=== PATIENT | male | born 1960 | race Caucasian/White ===

== ENCOUNTER 2017-05-25 20:43 | Emergency (ER) | payer OTHER ==
[~2017-05-25] VITALS: Ht 170.2 cm; Wt 83.9 kg
[2017-05-25 21:39] LABS: HEMATOCRIT 44.5 % (42.0-52.0); HEMOGLOBIN 14.9 gm/dL (14.0-18.0); MCH 31.9 pg (26.0-34.0); MCHC 33.4 g/dL (28.0-37.0); MCV 95.6 fL (80.0-100.0); MPV 7.7 fl. (7.2-11.1); RBC 4.66 mil/uL (4.50-6.00); RDW-CV 14.9 % (10.5-14.5); WBC 10.3 thou/uL (4.0-11.0)
[2017-05-25 21:47] LABS: ANION GAP 15 mmol/L (7-16); BUN 20 mg/dL (7-18); CALCIUM 8.6 mg/dL (8.5-10.1); CHLORIDE 103 mmol/L (98-107); CO2 26 mmol/L (21-32); CREATININE 1.4 mg/dL (0.6-1.3); GLUCOSE 112 mg/dL (70-99); POTASSIUM 4.1 mmol/L (3.5-5.1); SODIUM 144 mmol/L (136-145)
[2017-05-25 21:58] LABS: ALBUMIN 4.2 g/dL (3.4-5.0); ALKALINE PHOSPHATASE 61 U/L (46-116); NT-PRO BRAIN NAT PEPTIDE 29 pg/mL (<300); SGOT 21 U/L (15-37); SGPT 26 U/L (30-65); TOTAL BILIRUBIN 0.2 mg/dL (<0.1-1.0); TOTAL PROTEIN 8.5 g/dL (6.4-8.2); TROPONIN-I LEVEL <0.06 ng/mL (<0.06)
[2017-05-25 22:58] VITALS: BP 119/75
--- NOTE | 2017-05-26 17:03 | EKG ---
[place] [address] ELECTROCARDIOGRAM REPORT Name: BRII KENT [id number] Admission: 05/25/17 Attend Phys: Discharge: 05/25/17 Date of : 58 Report #: [id number] THIS REPORT FOR: //name// [facility] ED Test Date: 2017-05-25 Test Time: 21:36:07 Pat Name: BRII KENT Department: Room: Gender: M [employer]: TDM : 1960 Requested By: Luis Manuel Cao Order Number: [id number] MD: Chaim Hunter Measurements Intervals [place] Rate: 89 P: 53 [place]: 168 QRS: -41 QRSD: 93 T: 54 QT: 360 QTc: 439 Interpretive Statements Sinus rhythm Inferior infarct, old Lateral leads are also involved Baseline wander in lead(s) V5 No previous ECG available for comparison Electronically Signed On 05-26-2017 17:03:30 CONTROL OPERATOR by Chaim Hunter [email or web address] <ELECTRONICALLY SIGNED> By: Chaim Hunter MD, [facility] 05/26/17 1703 [id number] 35 Chaim Hunter MD, FACC /EPI
== END 2017-05-25 22:58 | disposition home or self-care (01) ==
LOC: M.ERS 20:43
PROVIDERS: Physician Assistant
DX: S01.01XA Laceration without foreign body of scalp, initial encounter (principal); I10 Essential (primary) hypertension; Z96.659 Presence of unspecified artificial knee joint; W18.09XA Striking against other object with subsequent fall, initial encounter; Y93.89 Activity, other specified; Y92.098 Other place in other non-institutional residence as the place of occurrence of the external cause; Y99.8 Other external cause status

== ENCOUNTER 2017-09-29 22:00 | Inpatient (IN) | payer OTHER ==
[~2017-09-29] VITALS: Ht 170.2 cm; Wt 80.1 kg
[2017-09-29 22:02] VITALS: BP 146/84
[2017-09-29] MEDS ORDERED: HYDROCHLOROTHIA25 M2 PO (22:07)
[2017-09-29] MEDS ORDERED: NORVASC10 MG PO (22:08)
[2017-09-29] MEDS ORDERED: XANAX 0.5 MG0.5 MG PO (22:08)
[2017-09-29] MEDS ORDERED: PROTONIX 20 MG20 M1 PO (22:09)
[2017-09-29] MEDS ORDERED: CELEBREX 200 M200 M1 PO (22:09)
[2017-09-29] MEDS ORDERED: COREG25 MG PO (22:10)
[2017-09-29] MEDS ORDERED: LIPITOR 20 MG T20 M1 PO (22:10)
[2017-09-29] MEDS ORDERED: NORCO 10-325 T1 EACH PO (22:11)
[2017-09-29] MEDS ORDERED: ALIGN4 MG PO (22:12)
[2017-09-29] MEDS ORDERED: TRAMADOL 50 MG50 MG PO (22:14)
[2017-09-29 22:25] LABS: ABSOLUTE EOSINOPHILS 0.1 thou/uL (0.0-0.7); ABSOLUTE LYMPHOCYTES 1.6 thou/uL (0.8-5.3); ABSOLUTE MONOCYTES 0.7 thou/uL (0.0-1.2); ABSOLUTE NEUTROPHILS 11.9 thou/uL (1.6-8.1); BASOPHILS 0.2 %; EOSINOPHILS 0.4 %; HEMATOCRIT 41.9 % (42.0-52.0); HEMOGLOBIN 14.2 gm/dL (14.0-18.0); LYMPHOCYTES 11.2 %; MCH 32.3 pg (26.0-34.0); MCHC 33.9 g/dL (28.0-37.0); MCV 95.4 fL (80.0-100.0); MONOCYTES 4.7 %; MPV 8.3 fl. (7.2-11.1); NUCLEATED RBCS 0 /100WBC; PLATELET COUNT* 273 thou/uL (150-400); POLYS 83.5 %; RDW-CV 13.3 % (10.5-14.5); WBC 14.3 thou/uL (4.0-11.0)
[2017-09-29 22:32] LABS: ANION GAP 13 mmol/L (7-16); BUN 20 mg/dL (7-18); CALCIUM 9.4 mg/dL (8.5-10.1); CHLORIDE 90 mmol/L (98-107); CO2 26 mmol/L (21-32); GLUCOSE 117 mg/dL (70-99); POTASSIUM 3.5 mmol/L (3.5-5.1); SODIUM 129 mmol/L (136-145)
[2017-09-29 22:35] LABS: PROTIME 9.8 Seconds (9.20-11.50)
[2017-09-29 22:43] LABS: ALBUMIN 4.2 g/dL (3.4-5.0); ALKALINE PHOSPHATASE 59 U/L (46-116); NT-PRO BRAIN NAT PEPTIDE 113 pg/mL (<300); SGOT 25 U/L (15-37); SGPT 29 U/L (30-65); TOTAL BILIRUBIN 1.1 mg/dL (<0.1-1.0); TOTAL PROTEIN 8.3 g/dL (6.4-8.2); TROPONIN-I LEVEL <0.06 ng/mL (<0.06)
[2017-09-29 22:47] LABS: URINE BLOOD TRACE (Negative); URINE CLARITY CLEAR; URINE COLOR YELLOW; URINE GLUCOSE-RANDOM NEGATIVE (Negative); URINE LEUKOCYTES-REFLEX NEGATIVE (Negative); URINE NITRITE-REFLEX NEGATIVE (Negative); URINE PROTEIN TRACE (Negative); URINE SPECIFIC GRAVITY >= 1.030 (1.005-1.030); URINE UROBILINOGEN 0.2 E.U./dl (0.2-1.0)
[2017-09-29 22:49] LABS: URINE BILIRUBIN 1+ (Negative); URINE KETONES 3+ (Negative)
[2017-09-29 22:55] LABS: ICTOTEST (BILI CONFIRMATORY) Negative (Negative)
[2017-09-29 22:58] LABS: URINE REDUCING SUBSTANCE NEGATIVE (Negative)
[2017-09-29 23:06] LABS: LIPASE 4081 U/L (73-393)
[2017-09-30] VITALS (8 sets, daily range): BP systolic 122–144; BP diastolic 75–85
--- NOTE | 2017-09-30 02:44 | NUR ---
0030 ALERT AND ORIENTED X 4 MALE PATIENT TO BED 112 BY CART FROM ER IN STABLE CONDITION. ADMISSION ROUTINES IN PROGRESS. VITAL SIGNS STABLE. CONTINUE TO MONITOR.
[2017-09-30 05:53] LABS: HEMATOCRIT 40.6 % (42.0-52.0); HEMOGLOBIN 13.9 gm/dL (14.0-18.0); MCH 32.4 pg (26.0-34.0); MCHC 34.3 g/dL (28.0-37.0); MCV 94.3 fL (80.0-100.0); MPV 8.2 fl. (7.2-11.1); RBC 4.3 mil/uL (4.50-6.00); RDW-CV 13.1 % (10.5-14.5); WBC 16.3 thou/uL (4.0-11.0)
--- NOTE | 2017-09-30 06:09 | NUR ---
PATIENT HAS REMAINED ALERT AND ORIENTED X 4 THROUGHOUT THE SHIFT AND RESTING QUIETLY ON HOURLY ROUNDS. MEDICATED FOR PAIN Q3H FROM ARRIVAL TO UNIT. UP SBA TO BR. NPO. DENIES NAUSEA. GI CONSULT THIS AM. VITAL SIGNS STABLE. CONTINUE TO MONITOR.
[2017-09-30 06:14] LABS: ALBUMIN 3.5 g/dL (3.4-5.0); CALCIUM 8.8 mg/dL (8.5-10.1); CREATININE 0.9 mg/dL (0.6-1.3); POTASSIUM 3.9 mmol/L (3.5-5.1); TOTAL BILIRUBIN 0.8 mg/dL (<0.1-1.0); TOTAL PROTEIN 6.9 g/dL (6.4-8.2)
--- NOTE | 2017-09-30 07:25 | NUR ---
CHANGE OF SHIFT BEDSIDE REPORT GIVEN PATIENT SEEN IN BED AND RESTING
--- NOTE | 2017-09-30 13:21 | EKG ---
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 09/30/17 1321 03 Saman Lazaro MD, [facility] /EPI
[2017-09-30 16:19] LABS: CHOLESTEROL 160 mg/dL (<200); TRIGLYCERIDE 117 mg/dL (<150)
--- NOTE | 2017-09-30 17:41 | NUR ---
patient remains a and o x 4 c/o abdomen pain treated and relieved with dilaudid 1mg ivp tolerating cl diet ivf ns at 250cc/hr iv site r ac 20 ga patient up indepenedent to bathroom void adequately call light in reach and instruction given and followed
--- NOTE | 2017-09-30 19:18 | NUR ---
PATIENT WITH TEMP 101.4 DR BARAHONA NOTIFIED ORDERS FOR SEPSIS WORKUP AND ZOSYN IVP AND OK TO TREAT WITH TYLENOL
[2017-09-30 21:35] LABS: HEMATOCRIT 36.7 % (42.0-52.0); HEMOGLOBIN 12.3 gm/dL (14.0-18.0); MCH 32.3 pg (26.0-34.0); MCHC 33.7 g/dL (28.0-37.0); MCV 95.8 fL (80.0-100.0); MPV 8.4 fl. (7.2-11.1); NUCLEATED RBCS 0 /100WBC; RBC 3.83 mil/uL (4.50-6.00); RDW-CV 13.2 % (10.5-14.5); WBC 15.4 thou/uL (4.0-11.0)
[2017-09-30 21:43] LABS: PLATELET COUNT* 185 thou/uL (150-400)
[2017-09-30 21:48] LABS: CALCIUM 7.8 mg/dL (8.5-10.1); CREATININE 0.8 mg/dL (0.6-1.3); POTASSIUM 3.7 mmol/L (3.5-5.1)
[2017-09-30 21:49] LABS: APTT 31.7 Seconds (25.0-31.3); INR 1.1; PROTIME 10.4 Seconds (9.20-11.50)
[2017-09-30 21:54] LABS: ALBUMIN 2.7 g/dL (3.4-5.0); MAGNESIUM 1.3 mg/dL (1.8-2.4); PHOSPHORUS* 1.8 mg/dL (2.5-4.9); TOTAL BILIRUBIN 0.7 mg/dL (<0.1-1.0); TOTAL PROTEIN 6.1 g/dL (6.4-8.2)
[2017-09-30 22:06] LABS: ABSOLUTE LYMPHOCYTES 0.9 thou/uL (0.8-5.3); ABSOLUTE MONOCYTES 0.5 thou/uL (0.0-1.2)
[2017-09-30 22:07] LABS: PLATELET ESTIMATE ADEQUATE
[2017-10-01] VITALS: BP 121/73
[2017-10-01 00:02] LABS: URINE BILIRUBIN NEGATIVE (Negative); URINE BLOOD NEGATIVE (Negative); URINE CLARITY CLEAR; URINE COLOR YELLOW; URINE GLUCOSE-RANDOM NEGATIVE (Negative); URINE KETONES 1+ (Negative); URINE LEUKOCYTES-REFLEX NEGATIVE (Negative); URINE NITRITE-REFLEX NEGATIVE (Negative); URINE PROTEIN NEGATIVE (Negative); URINE SPECIFIC GRAVITY <= 1.005 (1.005-1.030); URINE UROBILINOGEN 0.2 E.U./dl (0.2-1.0)
[2017-10-01 01:09] VITALS: BP 135/85
--- NOTE | 2017-10-01 03:11 | NUR ---
PATIENT REPORTING SLIGHT SHORTNESS OF AIR AFTER AMBULATING FROM BR AND FEELING WHEEZY. LUNG ASSESSMENT FINDING EXPIRATORY WHEEZE LEFT LUNG AND SLIGHT COARSENESS OF BILAT LUNG BASES. VITAL SIGNS STABLE WITH ROOM AIR O2 SAT 94%. UP TO DR. BARAHONA BY PHONE WITH NEW ORDERS TO HOLD IVF'S THE REMAINDER OF THE NIGHT. CONTINUE TO MONITOR.
[2017-10-01 04:02] VITALS: BP 145/86
[2017-10-01 04:43] LABS: HEMATOCRIT 37.9 % (42.0-52.0); HEMOGLOBIN 12.6 gm/dL (14.0-18.0); MCH 32.4 pg (26.0-34.0); MCHC 33.2 g/dL (28.0-37.0); MCV 97.5 fL (80.0-100.0); MPV 8.9 fl. (7.2-11.1); RBC 3.89 mil/uL (4.50-6.00); RDW-CV 13.2 % (10.5-14.5); WBC 16.2 thou/uL (4.0-11.0)
[2017-10-01 04:58] LABS: ALBUMIN 2.7 g/dL (3.4-5.0); CALCIUM 7.9 mg/dL (8.5-10.1); CREATININE 0.9 mg/dL (0.6-1.3); MAGNESIUM 1.4 mg/dL (1.8-2.4); POTASSIUM 3.3 mmol/L (3.5-5.1); TOTAL BILIRUBIN 0.9 mg/dL (<0.1-1.0); TOTAL PROTEIN 6.4 g/dL (6.4-8.2)
--- NOTE | 2017-10-01 05:44 | NUR ---
PATIENT HAS REMAINED ALERT AND ORIENTED X 4 THROUGHOUT THE SHIFT AND RESTING QUIETLY ON HOURLY ROUNDS. PATIENT WITHOUT COMPLAINTS SINCE LAST ENTRY. MEDICATED FOR PAIN Q2H AT PATIENT REQUEST. VITAL SIGNS STABLE WITH TEMP. MEDS/ANTIBIOTICS PER ORDERS. CONTINUE TO MONITOR.
[2017-10-01 09:07] VITALS: BP 128/86
--- NOTE | 2017-10-01 16:40 | NUR ---
ASSUMED CARE OF PATIENT AFTER MORNING REPORT. ALERT AND ORIENTED X4. ASSESSMENT COMPLETED AND CHARTED. VSS ON ROOM AIR. FLUIDS INFUSED ORDERED. PATIENTS PAIN HAS BEEN MANAGED WITH IV PAIN MEDICATION. PATIENT HAS COMPLAINTS OF ANXIETY AND REQUESTED A CHANGE IN DOSAGE ON HIS XANAX, PAGED DR BARAHONA AND WROTE THE ORDER FOR PHARMACY. PATIENTS TEMP WAS AT 99.3 THIS AFTERNOON, WILL GIVE TYLENOL WITH HIS XANAX ONCE APPROVED BY PHARMACY. HOURLY ROUNDS MAINTAINED, CALL LIGHT WITHIN REACH, NURSING WILL CONTINUE TO MONITOR.
[2017-10-01 20:00] VITALS: BP 117/74
[2017-10-02 04:08] LABS: HEMATOCRIT 32.6 % (42.0-52.0); HEMOGLOBIN 10.9 gm/dL (14.0-18.0); MCH 32.7 pg (26.0-34.0); MCHC 33.5 g/dL (28.0-37.0); MCV 97.5 fL (80.0-100.0); MPV 8.8 fl. (7.2-11.1); RBC 3.34 mil/uL (4.50-6.00); RDW-CV 12.9 % (10.5-14.5); WBC 11.8 thou/uL (4.0-11.0)
[2017-10-02 04:26] LABS: ALBUMIN 2.7 g/dL (3.4-5.0); CALCIUM 8.3 mg/dL (8.5-10.1); CREATININE 0.8 mg/dL (0.6-1.3); MAGNESIUM 1.6 mg/dL (1.8-2.4); POTASSIUM 3.2 mmol/L (3.5-5.1); TOTAL BILIRUBIN 0.9 mg/dL (<0.1-1.0); TOTAL PROTEIN 6.6 g/dL (6.4-8.2)
--- NOTE | 2017-10-02 04:55 | NUR ---
ASSUMED PT CARE AT 19:1. REPORT RECEIVED FROM NURSE. PT IS ALERT AWAKE ORIENTED X4. VITAL SIGNS TAKEN RESULTS WITHIN NORMAL LIMIT. NS RUNNING AT 80CC/HR PT IS ON RA AND SATURATION IS 96. COMPLAINS OF PAIN IN THE ABDOMNEN. HYDROMORPHONE ADMINISTERED Q2 HR TO RELIEF PAIN. IV ANTIBIOTICS WERE ADMINISTERED SCEDULED. ASSEESSMENT PERFORMED AT BEDSIDE. REFER TO CHARTING. AT AROUND MIDNIGHT.PT COMPLAINS THAT HE IS CONGESTED. LUNG SOUND ASSESSED. FOUND SOME WHEEZES IN THE UPPER LOBES. CALLED. HE ORDERED TO D/C THE NS AND TO START PT ON DUANEB TREATMENT Q 4 HOURS. NS WAS D/C. CT OF ABD TO BE PERFORMED THIS AM. ORAL PREP TO BE ADMNISTERD AT 06:30 AND 0700 PRIOR TO TESTING. PT IS AWARE AND COMPLIES. XANAX WAS ADM ORDERED FOR ANXIETY. PT SAYS HE IS ANXIOUS ABOUT HIS BUSINESS. WILL CONTINUE TO MONIOR.
--- NOTE | 2017-10-02 06:41 | NUR ---
PT DRINK BOTH PREP LIQUID FOR THE CONTRAST TESTIN TODAY
[2017-10-02 08:00] VITALS: BP 134/74
--- NOTE | 2017-10-02 10:13 | NUR ---
ASSUMED CARE OF PT AT 0730. PT CONTINUES TO BE A&O X4 CALM AND COOPERATIVE. PT C/O PAIN HAVE BEEN CONTROLLED WITH PRN IV PAIN MEDS. C/O ANXIETY CONTROLLED WITH PRN PO MEDICATIONS PER MAY. PT VSS ON ROOM AIR TOLERATING CLEAR LIQUID DIET WELL. NURSING WILL CONTINUE TO MONITOR FOR COMFORT AND SAFTERY.
--- NOTE | 2017-10-02 13:39 | NUR ---
PT.PLEASANT. LOOKS COMFORTABLE IN BED. STATED HE IS FEELING MUCH BETTER. IS TOLERATING HIS DIET. HE SAID TALKED LIKE HE MAY GET TO GO HOME TOMORROW. HE IS NORMALLY INDEPENDENT. LIVES ALONE. NO HX OF HOME HEALTH OR USE OF DME. HE AND SON HAVE THEIR OWN BUSINESS. HE DOES NOT FEEL HE WILL HAVE ANY DISCHARGE NEEDS.
[2017-10-02 14:23] LABS: MAGNESIUM 1.7 mg/dL (1.8-2.4); POTASSIUM 3.7 mmol/L (3.5-5.1)
[2017-10-02 15:42] VITALS: BP 136/76
--- NOTE | 2017-10-02 18:15 | NUR ---
ASSUMED CARE OF PATIENT AT 1030. ALERT AND ORIENTED X4. UP AD KALYAN IN ROOM. IV IS PATENT AND SALINE LOCKED. TOLERATING FULL LIQUID DIET. PAIN BEING MANAGED WITH IV PAIN MEDICATION. DENIES NAUSEA. VSS ON ROOM AIR. HOURLY ROUNDS HAVE BEEN MAINTAINED THROUGHOUT SHIFT. CALL LIGHT IS WITHIN REACH. NURSING WILL CONTINUE TO MONITOR.
[2017-10-02 20:20] VITALS: BP 130/78
[2017-10-03 03:59] LABS: HEMATOCRIT 32.2 % (42.0-52.0); MCH 32.9 pg (26.0-34.0); MCHC 34.2 g/dL (28.0-37.0); MCV 96.3 fL (80.0-100.0); MPV 8.1 fl. (7.2-11.1); RBC 3.34 mil/uL (4.50-6.00); WBC 6.6 thou/uL (4.0-11.0)
[2017-10-03 04:15] LABS: CALCIUM 8.3 mg/dL (8.5-10.1); CREATININE 0.9 mg/dL (0.6-1.3); MAGNESIUM 1.8 mg/dL (1.8-2.4); POTASSIUM 3.2 mmol/L (3.5-5.1)
--- NOTE | 2017-10-03 05:35 | NUR ---
PATIENT ALERT AND ORIENTED X 4. VITALS STABLE. RA. DILUADID GIVEN X 1. PAIN CONTROLLED. UP INDEPENDENTLY. DENIES NAUSEA. TOLERATED FULL LIQUID DIET, WILL TRY REGULAR DIET FOR BREAKFAST. HOURLY ROUNDS. NURSING WILL CONTINUE TO MONITOR.
[2017-10-03 08:15] VITALS: BP 105/67
[2017-10-03] MEDS ORDERED: LISINOPRIL5 MG PO (08:50)
[2017-10-03 10:02] VITALS: BP 105/67
--- NOTE | 2017-10-03 11:30 | NUR ---
PATIENT LEFT UNIT AMBULATORY WITH NURSING STAFF AT 1115. IV DC'D. EDUCATED PATIENT ON NEW MED SCRIPTS AND DISCHARGE INSTRUCTIONS. PATIENT VERBALIZED UNDERSTANDING. ALL BELONGINGS LEFT WITH PATIENT.
--- NOTE | 2017-10-14 16:59 | CON ---
[address] [address] CONSULTATION Name: BRII KENT Room: [address] IN M.R.#: [id number] Admission: 09/29/17 Attend Phys: Sea Hale MD Discharge: 10/03/17 Date of : 58 Report #: [id number] THIS REPORT FOR: //name// CC: Sea Banegas III, MD DICTATED BY: Sheron Li [facility] DATE OF SERVICE: 09/30/2017 Please note at the time of this dictation, the patient was seen and physically examined by myself. REASON FOR CONSULTATION: Abdominal pain, pancreatitis. HISTORY OF PRESENT ILLNESS: This is a 56-year-old male who presented to the emergency room with worsening of abdominal pain that abruptly started yesterday afternoon. He states he was just sitting there and all of a sudden he got very hot and sweaty. He became very nauseous and started having abdominal pain and then he started vomiting. He states in the past this is similar to how his pancreatitis had started and prompted him to come in to be seen. The patient states his last bout of pancreatitis was in the fall of last year in which he went to [facility], otherwise prior to that had been 4 years prior to. He states he did see Dr. Lee after his hospitalization. He underwent an EGD and colonoscopy at that time. He states all was good. He also mentioned that he had an EUS done at [facility] on the [place] as well some time ago, but cannot recall what the results were. He states he did see a surgeon when he was in the hospital last fall Dr. Baird who they did discuss possibly taking out his gallbladder, but at that time, he was not interested in doing so. ALLERGIES: No known drug allergies. MEDICATIONS FROM HOME: Include Ultram, Align, Morehouse, Coreg, Lipitor, Celebrex, Protonix, Xanax, Norvasc, and hydrochlorothiazide. PAST MEDICAL HISTORY: History of pancreatitis, but does not take any pancreatic enzymes and a concussion in 2017. PAST SURGICAL HISTORY: He had his left knee surgery, which will have to have a repeat knee, he states in the fall of this year as well. FAMILY HISTORY: Pancreatic cancer, esophageal and female cancers on his maternal side of the family. SOCIAL HISTORY: He is self-employed. Denies any alcohol, [place] [address] CONSULTATION Name: BRII KENT Room: [address]#: [id number] Admission: 09/29/17 Attend Phys: Sea Hale MD Discharge: 10/03/17 Date of : 58 Report #: [id number] drug use at this time. REVIEW OF SYSTEMS: Twelve-point review of systems is essentially negative except what is mentioned in the HPI. PHYSICAL EXAMINATION: VITAL SIGNS: Temperature 36.9, pulse 102, respirations 18, and blood pressure 144/83. HEART: Regular rate and rhythm. LUNGS: Clear. ABDOMEN: Soft, positive bowel sounds in all 4 quadrants with some left upper quadrant tenderness noted to palpation. LABS: Hemoglobin 13.9, hematocrit 40.6, white count is 16.3, and platelets 260. Sodium 131, potassium 3.9, chloride 94, CO2 of 25, BUN is 13, creatinine 0.9, GFR is 87, glucose is 105, lipase was 4081. PT 9.8, INR is 1. LFTs: Total bilirubin 1.1, alkaline phosphatase 59, ALT 29, AST is 25. Chest x-ray negative. CT of the abdomen and pelvis showed gallbladder and biliary system was normal. Pancreas showed marked inflammation surrounding with head and body consistent with acute pancreatitis and some calcifications were noted at the head of the pancreas, however. Diverticulosis noted in the sigmoid colon. IMPRESSION: 1. Abdominal pain. 2. Nausea and vomiting. 3. Leukocytosis. 4. History of recurrent pancreatitis, last episode fall. 5. Family history on the maternal side of pancreatic, esophageal and female cancers. PLAN: 1. Continue his fluids at 250 mL an hour. 2. Advance his diet to clear liquids. 3. Obtain medical records from [facility]'s and also Dr. Lee's office. 4. Further recommendations to be made once the records have been reviewed. Thank you for allowing us to participate in this patient's care. Please do not hesitate to call with any questions in regard to this consult. ADDENDUM I have personally seen and examined the patient and reviewed labs and imaging. The patient with history of recurrent pancreatitis who has had 2 episodes of previous pancreatitis 1 year ago and another one 4 years ago. He reports that he has had an endoscopic ultrasound, which was essentially unremarkable. He presents with abdominal pain, which started Friday. His liver enzymes are [facility] [address] [place] [address] CONSULTATION Name: BRII KENT Room: [address] IN M.R.#: [id number] Admission: 09/29/17 Attend Phys: Sea Hale MD Discharge: 10/03/17 Date of : 58 Report #: [id number] within normal limits, which hints that this is most probably non-biliary. Abdominal ultrasound is also negative for choledocholithiasis and cholelithiasis. The intra and extrahepatic ducts are within normal limit. We will check triglyceride levels and continue IV hydration and pain control. His abdomen is soft and he denies nausea. We will go ahead and start him on clear liquid and continue monitoring his lipase. The patient is agreeable with the plan. <ELECTRONICALLY SIGNED> By: Nadeen Pro MD 10/14/17 1659 [id number] rPo MD /nt
== END 2017-10-03 11:33 | disposition home or self-care (01) | DRG 439 ==
LOC: M.ERS 22:00 → M.ORTHSURG 23:15 → M.TBA-ER 23:15 → M.ORTHSURG 09-30 00:25
PROVIDERS: Emergency Medicine; Internal Medicine; Internal Medicine Gastroenterology; ADMIT Internal Medicine
DX: K85.90 Acute pancreatitis without necrosis or infection, unspecified (principal); E87.1 Hypo-osmolality and hyponatremia; R65.10 Systemic inflammatory response syndrome (SIRS) of non-infectious origin without acute organ dysfunction; D72.829 Elevated white blood cell count, unspecified; K27.9 Peptic ulcer, site unspecified, unspecified as acute or chronic, without hemorrhage or perforation; I10 Essential (primary) hypertension; Z79.899 Other long term (current) drug therapy; Z80.0 Family history of malignant neoplasm of digestive organs